=== PATIENT | male | born 1960 | race Two or more races ===

== ENCOUNTER 2021-10-28 19:57 | Emergency (ER) | payer MEDICAID ==
[~2021-10-28] VITALS: Ht 165.1 cm; Wt 97.5 kg
--- NOTE | 2021-10-28 20:25 | NUR ---
18G LAC. BLOOD COLLECTED AND SENT TO LAB
--- NOTE | 2021-10-28 20:25 | NUR ---
EMT AT BEDSIDE FOR EKG
[2021-10-28] MEDS ORDERED: IV NS 0.9% 1,000 ML BAG IV ONE (20:30)
[2021-10-28 20:49] LABS: BASOPHILS % (AUTO) 0.3 % (0.0-2.0); EOSINOPHILS % (AUTO) 4.5 % (0.0-6.0); HEMATOCRIT 38 % (39-51); HEMOGLOBIN 13.1 g/dL (13.5-17.5); LYMPHOCYTES # (AUTO) 1.5 K/uL (0.8-4.8); MEAN CORPUSCULAR HGB CONC 35 g/dl (31.0-36.0); MEAN CORPUSCULAR VOLUME 92 fL (80-96); MONOCYTES # (AUTO) 0.6 K/uL (0.1-1.30); MONOCYTES % (AUTO) 12.6 % (2.0-12.0); NEUTROPHILS # (AUTO) 2.6 K/uL (1.8-8.9); NEUTROPHILS % (AUTO) 52.6 % (43.0-81.0); PLATELET COUNT (AUTO) 137 K/uL (150-450); RED BLOOD CELL COUNT(AUTO) 4.09 MIL/uL (4.5-6.0)
--- NOTE | 2021-10-28 20:54 | NUR ---
PT BEING TRANSPORTED TO CT VIA [facility]
[2021-10-28 21:04] LABS: ALANINE AMINOTRANSFERASE 56 U/L (12-78); ALBUMIN 3.8 g/dL (3.4-5.0); ALKALINE PHOSPHATASE 88 U/L (46-116); ASPARTATE AMINOTRANSFERASE 43 U/L (15-37); BILIRUBIN,DIRECT 0.1 mg/dL (0.0-0.2); BILIRUBIN,TOTAL 0.4 mg/dL (0.2-1.0); CALCIUM, SERUM 8.7 mg/dL (8.5-10.1); CARBON DIOXIDE 26 mmol/L (21-32); CHLORIDE 106 mmol/L (98-107); CREATININE 1.4 mg/dL (0.6-1.3); GLUCOSE 181 mg/dL (74-106); POTASSIUM 3.3 mmol/L (3.5-5.1); SODIUM SERUM 141 mmol/L (136-145); TOTAL PROTEIN, SERUM 7.4 g/dL (6.4-8.2); UREA NITROGEN, BLOOD 21 mg/dL (7-18)
--- NOTE | 2021-10-28 21:09 | NUR ---
ATTEMPTED TO PERFORM ORTHOSTATIC V/S AND PT WAS UNABLE TO TOLERATED STANDINH DUE TO WEAKNESS. MADE AWARE.
--- NOTE | 2021-10-28 22:14 | NUR ---
PT REPORTS IMPROVEMENT OF SYM,PTOMS AMBULATES WITH STEADY GAIT WITHOUT DIZZINESS/WEAKNESS
[2021-10-28 22:28] VITALS: BP 164/85
--- NOTE | 2021-10-28 22:28 | NUR ---
IV removed. Catheter intact and site benign. Pressure and 4x4 applied to site. No bleeding noted. PICKED UP BY FRIEND
--- NOTE | 2021-10-28 22:28 | NUR ---
Patient discharged to home in stable condition. Written and verbal after care instructions given. Patient verbalizes understanding of instruction.
== END 2021-10-28 22:29 | disposition home or self-care (01) ==
LOC: ER 20:03
DX: R55 Syncope and collapse (principal); I10 Essential (primary) hypertension
CPT/HCPCS: 99285; 96360; 70450; 71045; 93005; 85025; 80048; 80076; 36415; 84484; 85730; 83880; 82962; J7030

== ENCOUNTER 2022-09-29 19:35 | Inpatient (IN) | payer MEDICAID ==
[~2022-09-29] VITALS: Ht 182.9 cm; Wt 66.7 kg
[2022-09-29] MEDS ORDERED: IPRATROPIUM NEB FS 0.5 MG/2.5 ML AMPUL.NEB NEB ONE (20:00)
[2022-09-29] MEDS ORDERED: ALBUTEROL FS 2.5 MG/3 ML VIAL.NEB NEB ONE (20:00)
[2022-09-29] MEDS ORDERED: LORAZEPAM INJ 2 MG/ML VIAL ONE (20:27)
[2022-09-29] MEDS ORDERED: LORAZEPAM INJ 2 MG/ML VIAL IV ONE (20:30)
[2022-09-29] MEDS ORDERED: IPRATROPIUM NEB FS 0.5 MG/2.5 ML AMPUL.NEB ONE (20:38)
[2022-09-29] MEDS ORDERED: ALBUTEROL FS 2.5 MG/3 ML VIAL.NEB ONE (20:38)
[2022-09-29 20:43] LABS: BASOPHILS % (AUTO) 0.1 % (0.0-2.0); EOSINOPHILS % (AUTO) 0.7 % (0.0-6.0); HEMATOCRIT 40 % (39-51); HEMOGLOBIN 13.6 g/dL (13.5-17.5); LYMPHOCYTES # (AUTO) 0.9 K/uL (0.8-4.8); LYMPHOCYTES % (AUTO) 19.9 % (20.0-44.0); MEAN CORPUSCULAR HEMOGLOBIN 31 PG (26.0-33.0); MEAN CORPUSCULAR HGB CONC 34 g/dl (31.0-36.0); MEAN CORPUSCULAR VOLUME 91 fL (80-96); MONOCYTES # (AUTO) 0.5 K/uL (0.1-1.30); NEUTROPHILS # (AUTO) 3.1 K/uL (1.8-8.9); NEUTROPHILS % (AUTO) 67.3 % (43.0-81.0); PLATELET COUNT (AUTO) 142 K/uL (150-450); RED BLOOD CELL COUNT(AUTO) 4.38 MIL/uL (4.5-6.0); RED CELL DISTRIBUTION WIDTH 15.3 % (11.5-15.0); WHITE BLOOD COUNT (AUTO) 4.6 K/uL (4.3-11.0)
[2022-09-29 20:44] VITALS: O2SAT 97
[2022-09-29 20:56] VITALS: O2SAT 100
[2022-09-29 20:58] LABS: CALCIUM, SERUM 9.5 mg/dL (8.5-10.1); CARBON DIOXIDE 23 mmol/L (21-32); CHLORIDE 106 mmol/L (98-107); CREATININE 1.2 mg/dL (0.6-1.3); GLUCOSE 169 mg/dL (74-106); POTASSIUM 3.4 mmol/L (3.5-5.1); SODIUM SERUM 141 mmol/L (136-145); UREA NITROGEN, BLOOD 11 mg/dL (7-18)
[2022-09-29 21:12] LABS: NT-PRO BNP 72 pg/mL (0-125)
[2022-09-29] MEDS ORDERED: CEFTRIAXONE 1GM BAG (ER ONLY) 1 GM/50 ML PIGGYBACK IV ONE (22:00)
[2022-09-29] MEDS ORDERED: AZITHROMYCIN 500 MG in IV D5W 250 ML IV ONE (22:00)
[2022-09-29] MEDS ORDERED: CEFTRIAXONE 1GM BAG (ER ONLY) 50 ML IV ONE (22:21)
[2022-09-29] MEDS ORDERED: AZITHROMYCIN 500 MG VIAL ONE ×2 (22:48)
[2022-09-29] MEDS ORDERED: IPRATROPIUM NEB FS 0.5 MG/2.5 ML AMPUL.NEB NEB PRN (23:00)
[2022-09-29] MEDS: AZITHROMYCIN 500 MG in IV D5W 250 ML IV SCH (23:00)
[2022-09-29] MEDS: CEFTRIAXONE 1 G in IV D5W 50 ML IV SCH (23:00)
[2022-09-29] MEDS ORDERED: ZOLPIDEM TARTRATE 5 MG TABLET GT PRN (23:00)
[2022-09-29] MEDS ORDERED: MAGNESIUM HYDROXIDE 30 ML UDC GT PRN (23:00)
[2022-09-29] MEDS ORDERED: ALBUTEROL FS 2.5 MG/3 ML VIAL.NEB CONTNEB PRN (23:00)
[2022-09-29] MEDS ORDERED: ENOXAPARIN SODIUM 40 MG/0.4 ML DISP.SYRIN SQ SCH (23:00)
[2022-09-29] MEDS ORDERED: ONDANSETRON HCL/PF 4 MG/2 ML VIAL IVP PRN (23:00)
[2022-09-29] MEDS ORDERED: Z GUARD REMEDY 4 OZ OINT TP PRN (23:00)
[2022-09-29] MEDS ORDERED: MAG HYDROX/AL HYDROX/SIMETH 30 ML UDC GT PRN (23:00)
[2022-09-30] VITALS (20 sets, daily range): BP systolic 85–205; BP diastolic 65–138; TEMP 97.5–98.7; O2SAT 88–100
[2022-09-30] MEDS ORDERED: ONDANSETRON HCL/PF 4 MG/2 ML VIAL ONE (04:53)
[2022-09-30 04:59] LABS: BASOPHILS % (AUTO) 0.1 % (0.0-2.0); EOSINOPHILS # (AUTO) 0.1 K/uL (0.0-0.7); EOSINOPHILS % (AUTO) 1.6 % (0.0-6.0); HEMATOCRIT 39 % (39-51); HEMOGLOBIN 13.3 g/dL (13.5-17.5); LYMPHOCYTES # (AUTO) 0.9 K/uL (0.8-4.8); LYMPHOCYTES % (AUTO) 26.8 % (20.0-44.0); MEAN CORPUSCULAR HEMOGLOBIN 31 PG (26.0-33.0); MEAN CORPUSCULAR HGB CONC 34 g/dl (31.0-36.0); MEAN CORPUSCULAR VOLUME 91 fL (80-96); MONOCYTES # (AUTO) 0.6 K/uL (0.1-1.30); MONOCYTES % (AUTO) 18.4 % (2.0-12.0); NEUTROPHILS # (AUTO) 1.8 K/uL (1.8-8.9); NEUTROPHILS % (AUTO) 53.1 % (43.0-81.0); PLATELET COUNT (AUTO) 129 K/uL (150-450); RED BLOOD CELL COUNT(AUTO) 4.23 MIL/uL (4.5-6.0); RED CELL DISTRIBUTION WIDTH 15.3 % (11.5-15.0); WHITE BLOOD COUNT (AUTO) 3.5 K/uL (4.3-11.0)
[2022-09-30 05:22] LABS: BASOPHILS % (MANUAL) 1 % (0.0-2.0); EOSINOPHILS % (MANUAL) 3 % (0-4); LYMPHOCYTES % (MANUAL) 22 % (16-48); MAGNESIUM 1.8 mg/dL (1.8-2.4); MONOCYTES % (MANUAL) 16 % (0-11.0); NEUTROPHILS % (MANUAL) 58 (42-76); PHOSPHORUS 5.1 mg/dL (2.5-4.9); PLATELET ESTIMATE DECREASED; POTASSIUM 3.6 mmol/L (3.5-5.1)
[2022-09-30] MEDS: IV 1/2NS 1000 ML 1,000 ML IV SCH ×3 (05:30→22:55)
[2022-09-30] MEDS ORDERED: LEVE100023 PO (09:20)
[2022-09-30] MEDS ORDERED: METF-440 PO (09:20)
[2022-09-30] MEDS ORDERED: ATOR10TA PO (09:20)
[2022-09-30] MEDS ORDERED: ACETAMINOPHEN 650 MG/20.3 ML UDC GT PRN (11:00)
[2022-09-30] MEDS ORDERED: NOREPINEPHRINE 8 MG in IV NS 0.9% 242 ML IV PRN (11:30)
[2022-09-30] MEDS ORDERED: LABETALOL 20 MG/4 ML VIAL IV ONE (11:30)
[2022-09-30] MEDS: PROPOFOL 100 ML IV PRN ×4 (11:47→22:40)
[2022-09-30 11:55] LABS: ABG BASE EXCESS -2.4 mmol/L; ABG OXYGEN SATURATION 99.4 % (92.0-98.5); ABG PCO2 38.8 mmHg (35.0-45.0); ABG PH 7.379 (7.350-7.450); ABG PO2 548.6 mmHg (75.0-100.0); ABG TOTAL HEMOGLOBIN 14.8 G/dL (13.5-18.0); AaDO2 125.6 mmHg; COHb 0.4 % (0.5-1.5); MetHb 0.2 % (0.0-1.5); O2Hb 98.8 % (94.0-97.0); SITE, ABG Left Radial; VENT MODE, BG BVM
[2022-09-30] MEDS ORDERED: FUROSEMIDE 40 MG/4 ML VIAL IV SCH (12:00)
[2022-09-30] MEDS: FENTANYL CITRAT IV 2,500 MCG in IV NS 0.9% 200 ML IV PRN (13:03)
[2022-09-30] MEDS ORDERED: ROCURONIUM BROMIDE 50 MG/5 ML IV ONE (15:08)
[2022-09-30] MEDS ORDERED: ETOMIDATE 2 MG/ML VIAL IV ONE (15:08)
[2022-09-30] MEDS: ENOXAPARIN SODIUM 40 MG/0.4 ML DISP.SYRIN SQ SCH (15:19)
[2022-09-30] MEDS ORDERED: IV NS 0.9% 250 ML IV ONE (16:09)
[2022-09-30] MEDS ORDERED: IOHEXOL-350 100 ML VIAL IV ONE (16:09)
[2022-09-30] MEDS ORDERED: CT SWABBABLE VALVE TRANS SET 1 EA INFUS.SET MC ONE (16:09)
[2022-09-30] MEDS ORDERED: QUETIAPINE FUMARATE 25 MG TABLET NG PRN (22:00)
[2022-09-30] MEDS: CEFTRIAXONE 1 G in IV D5W 50 ML IV SCH (22:40)
[2022-09-30] MEDS: AZITHROMYCIN 500 MG in IV D5W 250 ML IV SCH (23:21)
[2022-10-01] VITALS (23 sets, daily range): BP systolic 82–129; BP diastolic 59–78; TEMP 97.6–98.2; O2SAT 96–100
[2022-10-01 00:20] LABS: ABG BASE EXCESS -0.5 mmol/L; ABG OXYGEN SATURATION 98.9 % (92.0-98.5); ABG PCO2 41.9 mmHg (35.0-45.0); ABG PH 7.386 (7.350-7.450); ABG PO2 185.7 mmHg (75.0-100.0); ABG TOTAL HEMOGLOBIN 13.8 G/dL (13.5-18.0); AaDO2 51.3 mmHg; COHb 0.3 % (0.5-1.5); MetHb 0.1 % (0.0-1.5); O2Hb 98.5 % (94.0-97.0); PEEP,BG 5 cm H2O; SITE, ABG Left Brachial; VENT MODE, BG AC 16 450 40% +5; VT, ABG 450 mL
[2022-10-01] MEDS: PROPOFOL 100 ML IV PRN ×7 (01:42→22:00)
[2022-10-01] MEDS: IV 1/2NS 1000 ML 1,000 ML IV SCH ×3 (05:09→17:08)
[2022-10-01 06:19] LABS: CALCIUM, SERUM 8.8 mg/dL (8.5-10.1); CREATININE 0.8 mg/dL (0.6-1.3); MAGNESIUM 2.2 mg/dL (1.8-2.4); PHOSPHORUS 4.5 mg/dL (2.5-4.9); POTASSIUM 3.6 mmol/L (3.5-5.1)
[2022-10-01] MEDS: PANTOPRAZOLE 40 MG/PACK PACK NG SCH (09:05)
[2022-10-01 11:27] LABS: BASOPHILS % (AUTO) 0.2 % (0.0-2.0); EOSINOPHILS # (AUTO) 0.2 K/uL (0.0-0.7); EOSINOPHILS % (AUTO) 4.9 % (0.0-6.0); HEMATOCRIT 35 % (39-51); HEMOGLOBIN 12.1 g/dL (13.5-17.5); LYMPHOCYTES # (AUTO) 0.7 K/uL (0.8-4.8); LYMPHOCYTES % (AUTO) 17.1 % (20.0-44.0); MEAN CORPUSCULAR HEMOGLOBIN 33 PG (26.0-33.0); MEAN CORPUSCULAR HGB CONC 35 g/dl (31.0-36.0); MEAN CORPUSCULAR VOLUME 93 fL (80-96); MONOCYTES # (AUTO) 0.6 K/uL (0.1-1.30); NEUTROPHILS # (AUTO) 2.8 K/uL (1.8-8.9); NEUTROPHILS % (AUTO) 64.8 % (43.0-81.0); PLATELET COUNT (AUTO) 101 K/uL (150-450); RED BLOOD CELL COUNT(AUTO) 3.74 MIL/uL (4.5-6.0); RED CELL DISTRIBUTION WIDTH 15.4 % (11.5-15.0); WHITE BLOOD COUNT (AUTO) 4.4 K/uL (4.3-11.0)
[2022-10-01] MEDS: FENTANYL CITRAT IV 2,500 MCG in IV NS 0.9% 200 ML IV PRN (12:47)
[2022-10-01] MEDS: ENOXAPARIN SODIUM 40 MG/0.4 ML DISP.SYRIN SQ SCH (14:54)
[2022-10-01 15:14] LABS: ABG BASE EXCESS 0.6 mmol/L; ABG OXYGEN SATURATION 98.9 % (92.0-98.5); ABG PCO2 39.1 mmHg (35.0-45.0); ABG PH 7.423 (7.350-7.450); ABG PO2 186.5 mmHg (75.0-100.0); ABG TOTAL HEMOGLOBIN 13.6 G/dL (13.5-18.0); AaDO2 53.7 mmHg; COHb 0.5 % (0.5-1.5); MetHb 0.3 % (0.0-1.5); O2Hb 98.1 % (94.0-97.0); SITE, ABG Right Radial; VENT MODE, BG AC 16 450 +5 40%
[2022-10-01] MEDS: CEFTRIAXONE 1 G in IV D5W 50 ML IV SCH (22:00)
[2022-10-01] MEDS: AZITHROMYCIN 500 MG in IV D5W 250 ML IV SCH (23:00)
[2022-10-02] VITALS (24 sets, daily range): BP systolic 85–143; BP diastolic 59–94; TEMP 97.5–99; O2SAT 98–100
[2022-10-02] MEDS: PROPOFOL 100 ML IV PRN ×3 (01:38→07:14)
[2022-10-02] MEDS: IV 1/2NS 1000 ML 1,000 ML IV SCH ×2 (02:53→12:30)
[2022-10-02 05:00] LABS: BASOPHILS % (AUTO) 0.1 % (0.0-2.0); EOSINOPHILS # (AUTO) 0.2 K/uL (0.0-0.7); EOSINOPHILS % (AUTO) 6.8 % (0.0-6.0); HEMATOCRIT 36 % (39-51); HEMOGLOBIN 12.3 g/dL (13.5-17.5); LYMPHOCYTES # (AUTO) 0.5 K/uL (0.8-4.8); LYMPHOCYTES % (AUTO) 14.8 % (20.0-44.0); MEAN CORPUSCULAR HEMOGLOBIN 32 PG (26.0-33.0); MEAN CORPUSCULAR HGB CONC 34 g/dl (31.0-36.0); MEAN CORPUSCULAR VOLUME 92 fL (80-96); MONOCYTES # (AUTO) 0.4 K/uL (0.1-1.30); MONOCYTES % (AUTO) 10.1 % (2.0-12.0); NEUTROPHILS # (AUTO) 2.5 K/uL (1.8-8.9); NEUTROPHILS % (AUTO) 68.2 % (43.0-81.0); PLATELET COUNT (AUTO) 110 K/uL (150-450); RED BLOOD CELL COUNT(AUTO) 3.91 MIL/uL (4.5-6.0); RED CELL DISTRIBUTION WIDTH 15.2 % (11.5-15.0); WHITE BLOOD COUNT (AUTO) 3.6 K/uL (4.3-11.0)
[2022-10-02 05:12] LABS: CALCIUM, SERUM 8.3 mg/dL (8.5-10.1); CREATININE 0.8 mg/dL (0.6-1.3); MAGNESIUM 1.8 mg/dL (1.8-2.4); PHOSPHORUS 4.3 mg/dL (2.5-4.9); POTASSIUM 3.6 mmol/L (3.5-5.1)
[2022-10-02] MEDS ORDERED: PRECEDEX 400 MCG/100 ML BOTTLE 100 ML IV PRN (08:00)
[2022-10-02] MEDS: PANTOPRAZOLE 40 MG/PACK PACK NG SCH (08:10)
[2022-10-02] MEDS: ENOXAPARIN SODIUM 40 MG/0.4 ML DISP.SYRIN SQ SCH (15:23)
[2022-10-02] MEDS: CEFTRIAXONE 1 G in IV D5W 50 ML IV SCH (22:00)
[2022-10-02] MEDS: AZITHROMYCIN 500 MG in IV D5W 250 ML IV SCH (23:02)
[2022-10-03] VITALS (13 sets, daily range): BP systolic 119–169; BP diastolic 65–101; TEMP 98–98.6; O2SAT 95–100
[2022-10-03] MEDS: IV 1/2NS 1000 ML 1,000 ML IV SCH (02:57)
[2022-10-03 05:15] LABS: BASOPHILS % (AUTO) 0.2 % (0.0-2.0); EOSINOPHILS # (AUTO) 0.2 K/uL (0.0-0.7); EOSINOPHILS % (AUTO) 3.8 % (0.0-6.0); HEMATOCRIT 38 % (39-51); HEMOGLOBIN 12.9 g/dL (13.5-17.5); LYMPHOCYTES # (AUTO) 0.9 K/uL (0.8-4.8); LYMPHOCYTES % (AUTO) 23.1 % (20.0-44.0); MEAN CORPUSCULAR HEMOGLOBIN 32 PG (26.0-33.0); MEAN CORPUSCULAR HGB CONC 34 g/dl (31.0-36.0); MEAN CORPUSCULAR VOLUME 92 fL (80-96); MONOCYTES # (AUTO) 0.6 K/uL (0.1-1.30); MONOCYTES % (AUTO) 14.3 % (2.0-12.0); NEUTROPHILS # (AUTO) 2.3 K/uL (1.8-8.9); NEUTROPHILS % (AUTO) 58.6 % (43.0-81.0); PLATELET COUNT (AUTO) 106 K/uL (150-450); RED BLOOD CELL COUNT(AUTO) 4.11 MIL/uL (4.5-6.0); WHITE BLOOD COUNT (AUTO) 3.9 K/uL (4.3-11.0)
[2022-10-03 05:32] LABS: CALCIUM, SERUM 8.3 mg/dL (8.5-10.1); CREATININE 0.6 mg/dL (0.6-1.3); MAGNESIUM 1.6 mg/dL (1.8-2.4); PHOSPHORUS 3.4 mg/dL (2.5-4.9); POTASSIUM 3.3 mmol/L (3.5-5.1)
[2022-10-03] MEDS ORDERED: Magnesium 1GM/D5W 100ML PREMIX 100 ML IV SCH (07:30)
[2022-10-03] MEDS ORDERED: POTASSIUM CL. PREMIX PERIPHER. 50 ML IV SCH (07:30)
[2022-10-03] MEDS: PANTOPRAZOLE 40 MG/PACK PACK NG SCH (07:30)
[2022-10-03] MEDS: POTASSIUM CL. PREMIX PERIPHER. 50 ML IV SCH ×2 (08:44→09:59)
[2022-10-03] MEDS ORDERED: CLONIDINE HCL 0.1 MG TABLET PO PRN ×2 (10:00→10:29)
[2022-10-03] MEDS ORDERED: CLONIDINE HCL 0.1 MG TABLET GT PRN (10:07)
[2022-10-03] MEDS ORDERED: MAG HYDROX/AL HYDROX/SIMETH 30 ML UDC PO PRN (10:28)
[2022-10-03] MEDS ORDERED: PANTOPRAZOLE 40 MG/PACK PACK PO SCH (10:29)
[2022-10-03] MEDS ORDERED: QUETIAPINE FUMARATE 25 MG TABLET PO PRN (10:29)
[2022-10-03] MEDS ORDERED: MAGNESIUM HYDROXIDE 30 ML UDC PO PRN (10:29)
[2022-10-03] MEDS ORDERED: ZOLPIDEM TARTRATE 5 MG TABLET PO PRN (10:29)
[2022-10-03] MEDS ORDERED: ACETAMINOPHEN 325 MG TABLET PO PRN (10:30)
[2022-10-03] MEDS ORDERED: PHARMACY TO CHANGE GT/NG MEDS TO PO XX PRN (10:30)
[2022-10-03] MEDS ORDERED: POTASSIUM CHLORIDE 10 MEQ TABLET.SA PO ONE (11:00)
[2022-10-03] MEDS ORDERED: MAGNESIUM OXIDE 400 MG TABLET PO ONE (12:30)
[2022-10-03] MEDS: ENOXAPARIN SODIUM 40 MG/0.4 ML DISP.SYRIN SQ SCH (14:08)
[2022-10-03 21:08] LABS: AMPHETAMINE, URINE NEGATIVE (NEGATIVE); BARBITURATE, URINE NEGATIVE (NEGATIVE); BENZODIAZEPINE, URINE NEGATIVE (NEGATIVE); CANNABINOID, URINE NEGATIVE (NEGATIVE); COCCAINE, URINE NEGATIVE (NEGATIVE); OPIATE, URINE NEGATIVE (NEGATIVE); PHENCYCLIDINE SCREEN,URINE NEGATIVE (NEGATIVE)
[2022-10-03] MEDS: CEFTRIAXONE 1 G in IV D5W 50 ML IV SCH (22:03)
[2022-10-03] MEDS: AZITHROMYCIN 500 MG in IV D5W 250 ML IV SCH (23:23)
[2022-10-04] VITALS: BP 151/79; TEMP 97.8; O2SAT 94
[2022-10-04 07:21] LABS: BASOPHILS % (AUTO) 0.4 % (0.0-2.0); EOSINOPHILS # (AUTO) 0.1 K/uL (0.0-0.7); EOSINOPHILS % (AUTO) 3.8 % (0.0-6.0); HEMATOCRIT 40 % (39-51); HEMOGLOBIN 13.8 g/dL (13.5-17.5); LYMPHOCYTES # (AUTO) 0.7 K/uL (0.8-4.8); LYMPHOCYTES % (AUTO) 20.9 % (20.0-44.0); MEAN CORPUSCULAR HEMOGLOBIN 31 PG (26.0-33.0); MEAN CORPUSCULAR HGB CONC 34 g/dl (31.0-36.0); MEAN CORPUSCULAR VOLUME 91 fL (80-96); MONOCYTES # (AUTO) 0.5 K/uL (0.1-1.30); MONOCYTES % (AUTO) 13.9 % (2.0-12.0); NEUTROPHILS # (AUTO) 2.2 K/uL (1.8-8.9); PLATELET COUNT (AUTO) 127 K/uL (150-450); RED BLOOD CELL COUNT(AUTO) 4.41 MIL/uL (4.5-6.0); RED CELL DISTRIBUTION WIDTH 15.3 % (11.5-15.0); WHITE BLOOD COUNT (AUTO) 3.6 K/uL (4.3-11.0)
[2022-10-04 07:44] LABS: CALCIUM, SERUM 9.4 mg/dL (8.5-10.1); CREATININE 0.8 mg/dL (0.6-1.3); MAGNESIUM 1.8 mg/dL (1.8-2.4); PHOSPHORUS 3.3 mg/dL (2.5-4.9); POTASSIUM 3.9 mmol/L (3.5-5.1)
[2022-10-04 08:00] VITALS: BP 140/89; TEMP 97.9; O2SAT 95
[2022-10-04] MEDS: PANTOPRAZOLE 40 MG TABLET.DR PO SCH (09:48)
[2022-10-04] MEDS: NIFEdipine XL (30MG) 30 MG TAB PO SCH (09:48)
[2022-10-04] MEDS: ENOXAPARIN SODIUM 40 MG/0.4 ML DISP.SYRIN SQ SCH (15:06)
[2022-10-04 16:00] VITALS: BP 121/78; TEMP 98.3; O2SAT 96
[2022-10-04 20:00] VITALS: BP 138/81; TEMP 97.7; O2SAT 96
[2022-10-04] MEDS ORDERED: CEFTRIAXONE 1GM BAG (ER ONLY) 50 ML IV ONE (23:21)
[2022-10-04] MEDS: CEFTRIAXONE 1 G in IV D5W 50 ML IV SCH (23:29)
[2022-10-05 08:00] VITALS: BP 109/75; TEMP 98.2; O2SAT 95
[2022-10-05] MEDS: PANTOPRAZOLE 40 MG TABLET.DR PO SCH (09:36)
[2022-10-05 09:37] VITALS: BP 109/75
[2022-10-05] MEDS: NIFEdipine XL (30MG) 30 MG TAB PO SCH (09:37)
== END 2022-10-05 12:31 | disposition home or self-care (01) | DRG 812 ==
LOC: ER 19:43 → TELE1 09-30 10:23 → ICU 09-30 11:07 → MEDSG1 10-03 11:43
PROVIDERS: ADMIT Student in an Organized Health Care Education/Training Program; ATTEND Internal Medicine
PROC: 5A1945Z Respiratory Ventilation, 24-96 Consecutive Hours (ICD-10-PCS; principal; 2022-09-30)
PROC: 0BH17EZ Insertion of Endotracheal Airway into Trachea, Via Natural or Artificial Opening (ICD-10-PCS; 2022-09-30)
PROC: 05HB33Z Insertion of Infusion Device into Right Basilic Vein, Percutaneous Approach (ICD-10-PCS; 2022-10-01)
DX: T50.901A Poisoning by unspecified drugs, medicaments and biological substances, accidental (unintentional), initial encounter (principal); J96.01 Acute respiratory failure with hypoxia; D69.6 Thrombocytopenia, unspecified; E87.6 Hypokalemia; F41.0 Panic disorder [episodic paroxysmal anxiety]; I10 Essential (primary) hypertension; K44.9 Diaphragmatic hernia without obstruction or gangrene; Z20.822 Contact with and (suspected) exposure to COVID-19; Z90.49 Acquired absence of other specified parts of digestive tract; Y92.9 Unspecified place or not applicable; J98.11 Atelectasis; Z79.899 Other long term (current) drug therapy
CPT/HCPCS: 31720; 36410; 36415; 36600; 70450-TC; 71045-TC; 74018; 80048-TC; 82803-TC; 82962-TC; 83735-TC; 83880; 84100-TC; 84484-TC; 85025-TC; 85378-TC; 87040-TC; 87081-TC; 93307-TC; 93970-TC; 94003-TC; 94799-TC; 95819-TC; 97116-TC; 97530-TC; 99082-TC; A4223; C9803; G0378; J0456; J0696; J1650; J1940; J2060; J2405; J3010; J3480; J3490; J7050; J7060; Q9967

== ENCOUNTER 2022-10-06 19:36 | Inpatient (IN) | payer MEDICAID ==
[~2022-10-06] VITALS: Ht 172.7 cm; Wt 96.2 kg
[~2022-10-06 19:36] MED LIST: ATOR10TA PO; LEVE100023 PO; METF-440 PO
[2022-10-06 20:34] LABS: BASOPHILS % (AUTO) 1.1 % (0.0-2.0); EOSINOPHILS # (AUTO) 0.1 K/uL (0.0-0.7); HEMATOCRIT 40 % (39-51); HEMOGLOBIN 13.5 g/dL (13.5-17.5); LYMPHOCYTES % (AUTO) 26.4 % (20.0-44.0); MEAN CORPUSCULAR HEMOGLOBIN 31 PG (26.0-33.0); MEAN CORPUSCULAR HGB CONC 34 g/dl (31.0-36.0); MEAN CORPUSCULAR VOLUME 91 fL (80-96); MONOCYTES # (AUTO) 0.5 K/uL (0.1-1.30); MONOCYTES % (AUTO) 14.9 % (2.0-12.0); NEUTROPHILS % (AUTO) 53.6 % (43.0-81.0); PLATELET COUNT (AUTO) 134 K/uL (150-450); RED BLOOD CELL COUNT(AUTO) 4.36 MIL/uL (4.5-6.0); WHITE BLOOD COUNT (AUTO) 3.7 K/uL (4.3-11.0)
[2022-10-06 20:45] LABS: CALCIUM, SERUM 9.4 mg/dL (8.5-10.1); CARBON DIOXIDE 23 mmol/L (21-32); CHLORIDE 105 mmol/L (98-107); CREATININE 0.9 mg/dL (0.6-1.3); GLUCOSE 99 mg/dL (74-106); POTASSIUM 3.9 mmol/L (3.5-5.1); SODIUM SERUM 141 mmol/L (136-145); UREA NITROGEN, BLOOD 15 mg/dL (7-18)
[2022-10-06 20:53] LABS: LACTIC ACID 1.5 mmol/L (0.4-2.0)
[2022-10-06 21:00] LABS: ALANINE AMINOTRANSFERASE 49 U/L (12-78); ALBUMIN 4.1 g/dL (3.4-5.0); ALKALINE PHOSPHATASE 89 U/L (46-116); ASPARTATE AMINOTRANSFERASE 33 U/L (15-37); BILIRUBIN,DIRECT 0.1 mg/dL (0.0-0.2); BILIRUBIN,TOTAL 0.4 mg/dL (0.2-1.0); NT-PRO BNP 44 pg/mL (0-125); TOTAL PROTEIN, SERUM 7.6 g/dL (6.4-8.2)
[2022-10-06 21:23] LABS: INR 1.04 (0.91-1.10); PARTIAL THROMBOPLASTIN TIME 30.6 SEC (24.3-34.3); PROTHROMBIN TIME 10.9 SECS (9.2-11.1)
[2022-10-06 22:25] LABS: APPEARANCE,URINE CLEAR (CLEAR); BILIRUBIN,URINE NEGATIVE (NEGATIVE); BLOOD, URINE NEGATIVE Ery/uL (NEGATIVE); COLOR,URINE YELLOW (YELLOW); KETONES,URINE NEGATIVE (NEGATIVE); LEUKOCYTE ESTERASE ,URINE NEGATIVE (NEGATIVE); NITRITE, URINE NEGATIVE (NEGATIVE); PH,URINE 5.5 (5.0-8.0); PROTEIN,URINE NEGATIVE (NEGATIVE); UGLUCOSE NEGATIVE (NEGATIVE); UROBILINOGEN,URINE 0.2 EU/dL (0.2)
[2022-10-06] MEDS ORDERED: Z GUARD REMEDY 4 OZ OINT TP PRN (22:30)
[2022-10-06] MEDS ORDERED: ONDANSETRON HCL/PF 4 MG/2 ML VIAL IVP PRN (22:30)
[2022-10-06] MEDS ORDERED: LEVETIRACETAM (250 MG) 250 MG TABLET PO SCH (22:30)
[2022-10-06] MEDS ORDERED: MAG HYDROX/AL HYDROX/SIMETH 30 ML UDC PO PRN (22:30)
[2022-10-06] MEDS ORDERED: MAGNESIUM HYDROXIDE 30 ML UDC PO PRN (22:30)
[2022-10-06] MEDS ORDERED: LORAZEPAM INJ 2 MG/ML VIAL IV PRN (22:30)
[2022-10-06] MEDS ORDERED: DEXTROSE 50%-WATER 50 ML DISP.SYRIN IV PRN (22:30)
[2022-10-06] MEDS ORDERED: LEVETIRACETAM (500MG) 500 MG in IV NS 0.9% 100 ML IV ONE (22:30)
[2022-10-06] MEDS ORDERED: ACETAMINOPHEN 325 MG TABLET PO PRN (22:30)
[2022-10-06] MEDS ORDERED: LEVETIRACETAM (500MG) 500 MG/5 ML VIAL IV ONE (22:32)
[2022-10-06 23:30] VITALS: BP 142/92; TEMP 98.4; O2SAT 98
[2022-10-07] MEDS: IV D5/0.45 NACL 1,000 ML IV PRN ×2 (00:01→14:15)
[2022-10-07] MEDS: BLOOD SUGAR DIAGNOSTIC 1 EACH STRIP IN SCH ×5 (00:01→21:24)
[2022-10-07] MEDS: ENOXAPARIN SODIUM 40 MG/0.4 ML DISP.SYRIN SQ SCH ×2 (00:02→21:35)
[2022-10-07] MEDS: INSULIN REGULAR, HUMAN 100 UNIT/ML 3 ML VIAL SQ PRN ×3 (00:09→11:27)
[2022-10-07 01:55] VITALS: BP 142/92; TEMP 98.4; O2SAT 98
[2022-10-07 05:28] VITALS: BP 134/88; TEMP 98.1; O2SAT 98
[2022-10-07 05:49] LABS: BASOPHILS % (AUTO) 0.3 % (0.0-2.0); EOSINOPHILS # (AUTO) 0.1 K/uL (0.0-0.7); EOSINOPHILS % (AUTO) 3.5 % (0.0-6.0); HEMATOCRIT 37 % (39-51); HEMOGLOBIN 12.9 g/dL (13.5-17.5); LYMPHOCYTES # (AUTO) 0.9 K/uL (0.8-4.8); LYMPHOCYTES % (AUTO) 28.5 % (20.0-44.0); MEAN CORPUSCULAR HEMOGLOBIN 32 PG (26.0-33.0); MEAN CORPUSCULAR HGB CONC 35 g/dl (31.0-36.0); MEAN CORPUSCULAR VOLUME 90 fL (80-96); MONOCYTES # (AUTO) 0.5 K/uL (0.1-1.30); MONOCYTES % (AUTO) 16.6 % (2.0-12.0); NEUTROPHILS # (AUTO) 1.7 K/uL (1.8-8.9); NEUTROPHILS % (AUTO) 51.1 % (43.0-81.0); PLATELET COUNT (AUTO) 125 K/uL (150-450); RED CELL DISTRIBUTION WIDTH 14.9 % (11.5-15.0); WHITE BLOOD COUNT (AUTO) 3.3 K/uL (4.3-11.0)
[2022-10-07 06:10] LABS: CALCIUM, SERUM 9.2 mg/dL (8.5-10.1); CREATININE 0.7 mg/dL (0.6-1.3); MAGNESIUM 1.8 mg/dL (1.8-2.4); PHOSPHORUS 3.8 mg/dL (2.5-4.9); POTASSIUM 3.5 mmol/L (3.5-5.1)
[2022-10-07 07:00] VITALS: BP 141/82; TEMP 98; O2SAT 98
[2022-10-07] MEDS: METFORMIN 500 MG TABLET PO SCH ×2 (08:00→17:36)
[2022-10-07] MEDS ORDERED: LEVETIRACETAM (500MG) 1,500 MG in IV NS 0.9% 100 ML IV STA (08:25)
[2022-10-07] MEDS: ATORVASTATIN 10 MG TABLET PO SCH (08:41)
[2022-10-07] MEDS ORDERED: LEVETIRACETAM (250 MG) 250 MG TABLET PO SCH (09:00)
[2022-10-07] MEDS: PANTOPRAZOLE 40 MG VIAL IV SCH (09:13)
[2022-10-07] MEDS ORDERED: ALBUTEROL FS 2.5 MG/0.5 ML VIAL.NEB NEB PRN (10:30)
[2022-10-07] MEDS ORDERED: IPRATROPIUM NEB FS 0.5 MG/2.5 ML AMPUL.NEB NEB PRN (10:30)
[2022-10-07 11:22] LABS: ABG BASE EXCESS -0.7 mmol/L; ABG OXYGEN SATURATION 98.5 % (92.0-98.5); ABG PCO2 37.4 mmHg (35.0-45.0); ABG PH 7.416 (7.350-7.450); ABG PO2 142.5 mmHg (75.0-100.0); ABG TOTAL HEMOGLOBIN 13.6 G/dL (13.5-18.0); AaDO2 41.9 mmHg; COHb 0.6 % (0.5-1.5); MetHb 0.1 % (0.0-1.5); O2Hb 97.8 % (94.0-97.0); SITE, ABG Right Radial; VENT MODE, BG 3L NC
[2022-10-07 11:28] LABS: ANISOCYTOSIS 1+; BASOPHILS % (MANUAL) 0 % (0.0-2.0); EOSINOPHILS % (MANUAL) 4 % (0-4); LYMPHOCYTES % (MANUAL) 24 % (16-48); MONOCYTES % (MANUAL) 14 % (0-11.0); NEUTROPHILS % (MANUAL) 58 (42-76); PLATELET ESTIMATE DECREASED
[2022-10-07] MEDS ORDERED: LORAZEPAM INJ 2 MG/ML VIAL IV PRN (11:30)
[2022-10-07 12:00] VITALS: BP 144/82; TEMP 98; O2SAT 95
[2022-10-07 16:00] VITALS: BP 98/62; TEMP 98.8; O2SAT 97
[2022-10-07] MEDS ORDERED: INSULIN REGULAR, HUMAN 100 UNIT/ML 3 ML VIAL SQ PRN (18:30)
[2022-10-07] MEDS ORDERED: DEXTROSE 50%-WATER 50 ML DISP.SYRIN IV PRN (18:30)
[2022-10-07 20:00] VITALS: BP_SYST 125; BP_SYST 145; BP_DIAS 77; BP_DIAS 94; BP_DIAS 97; TEMP 97.7; TEMP 98.6; O2SAT 98; O2SAT 99
[2022-10-07] MEDS: LEVETIRACETAM (500MG) 1,500 MG in IV NS 0.9% 100 ML IV SCH (20:54)
[2022-10-08] VITALS (7 sets, daily range): BP systolic 139–159; BP diastolic 89–96; TEMP 97.5–99; O2SAT 97–100
[2022-10-08] MEDS: IV D5/0.45 NACL 1,000 ML IV PRN (05:34)
[2022-10-08] MEDS: BLOOD SUGAR DIAGNOSTIC 1 EACH STRIP IN SCH ×4 (05:36→22:11)
[2022-10-08] MEDS: LEVETIRACETAM (500MG) 1,500 MG in IV NS 0.9% 100 ML IV SCH ×2 (09:30→19:54)
[2022-10-08] MEDS: PANTOPRAZOLE 40 MG VIAL IV SCH (09:50)
[2022-10-08] MEDS: ATORVASTATIN 10 MG TABLET PO SCH (09:51)
[2022-10-08] MEDS: METFORMIN 500 MG TABLET PO SCH ×2 (09:51→17:36)
[2022-10-08 15:48] LABS: AMPHETAMINE, URINE NEGATIVE (NEGATIVE); BARBITURATE, URINE NEGATIVE (NEGATIVE); BENZODIAZEPINE, URINE NEGATIVE (NEGATIVE); CANNABINOID, URINE NEGATIVE (NEGATIVE); COCCAINE, URINE NEGATIVE (NEGATIVE); OPIATE, URINE NEGATIVE (NEGATIVE); PHENCYCLIDINE SCREEN,URINE NEGATIVE (NEGATIVE)
[2022-10-08] MEDS: ENOXAPARIN SODIUM 40 MG/0.4 ML DISP.SYRIN SQ SCH (21:55)
[2022-10-09] VITALS: BP 157/92; TEMP 97.3; O2SAT 99
[2022-10-09] MEDS: IV D5/0.45 NACL 1,000 ML IV PRN (01:16)
[2022-10-09 04:00] VITALS: BP 137/88; TEMP 98.2; O2SAT 98
[2022-10-09] MEDS: BLOOD SUGAR DIAGNOSTIC 1 EACH STRIP IN SCH ×2 (06:30→11:21)
[2022-10-09] MEDS ORDERED: PANTOPRAZOLE 40 MG TABLET.DR PO SCH (07:30)
[2022-10-09 08:00] VITALS: BP 162/95; TEMP 98.5; O2SAT 100
[2022-10-09 08:09] VITALS: BP 145/90
[2022-10-09] MEDS: METFORMIN 500 MG TABLET PO SCH (08:14)
[2022-10-09] MEDS: LEVETIRACETAM (500MG) 1,500 MG in IV NS 0.9% 100 ML IV SCH (08:14)
[2022-10-09] MEDS: ATORVASTATIN 10 MG TABLET PO SCH (08:15)
[2022-10-09] MEDS ORDERED: LEVE100023 PO (09:34)
[2022-10-09] MEDS ORDERED: LEVETIRACETAM SOL (5 ML) 100 MG/ML UDC PO SCH (21:00)
== END 2022-10-09 12:50 | disposition home or self-care (01) | DRG 53 ==
LOC: ER 19:38 → TELE 22:32
PROVIDERS: ATTEND Internal Medicine
DX: G40.909 Epilepsy, unspecified, not intractable, without status epilepticus (principal); D69.6 Thrombocytopenia, unspecified; E66.9 Obesity, unspecified; D72.819 Decreased white blood cell count, unspecified; Z20.822 Contact with and (suspected) exposure to COVID-19; Z79.84 Long term (current) use of oral hypoglycemic drugs; Z87.01 Personal history of pneumonia (recurrent); I10 Essential (primary) hypertension; R06.02 Shortness of breath; Z68.32 Body mass index [BMI] 32.0-32.9, adult
CPT/HCPCS: 36415; 36600; 70450-TC; 71045-TC; 71250-TC; 73110; 80048-TC; 80076-TC; 82803-TC; 82962-TC; 83605-TC; 83735-TC; 83880; 84100-TC; 84484-TC; 85025-TC; 85730-TC; 87040-TC; 87086-TC; A4223; C9113; G0378; G0480; J1650; J1815; J1953; J2060; J3490; J7030